=== PATIENT | female | born 1985 | race Caucasian/White ===

== ENCOUNTER 2017-04-21 18:51 | Inpatient (IN) | payer MEDICAID ==
[~2017-04-21] VITALS: Ht 157.5 cm; Wt 57.5 kg
[~2017-04-21 18:51] MED LIST: ALPR0.254 PO; AMOX-367 PO; CHLO473M MM; GABA-826 PO; HYDR-3240 PO; MAGN400T26 PO; ONDA4TAB10 PO; OXYC10TA32 PO; PROC10TA78 PO; PROC25SU25 PR; SERT50TA5 PO
[2017-04-21] MEDS ORDERED: ONDANSETRON 2MG/ML, 2ML IVPush ONE (19:30)
[2017-04-21] MEDS ORDERED: SODIUM CHLORIDE 0.9% 1,000ML IVBOLUS ONE ×2 (19:30→20:00)
[2017-04-21 19:36] LABS: BLOOD UREA NITROGEN 7 mg/dL (7-18)
[2017-04-21 19:40] LABS: ASPARTATE AMINO TRANSFERASE 35 U/L (15-37)
[2017-04-21] MEDS ORDERED: ONDANSETRON 2MG/ML, 2ML ONE (19:46)
[2017-04-21] MEDS ORDERED: HYDROmorphone 1 MG/ML, 1ML ONE ×2 (19:46→21:11)
[2017-04-21] MEDS: HYDROmorphone 2 MG/ML, 1ML IVPush PRN ×2 (19:51→21:14)
[2017-04-21] MEDS ORDERED: PROMETHAZINE 25 MG/ML, 1ML IM ONE (20:00)
[2017-04-21 20:27] LABS: DIFF TOTAL CELLS COUNTED 100 CELL DIFF
[2017-04-21] MEDS ORDERED: PROMETHAZINE 25 MG/ML, 1ML ONE (20:55)
[2017-04-21 20:58] LABS: ANISOCYTOSIS 1+; POIKILOCYTOSIS 1+
[2017-04-21 21:00] LABS: VERIFY COUNTS? YES
[2017-04-21] MEDS ORDERED: CEFTRIAXONE PMX 1GM/50ML 50 ML IV ONE (21:00)
[2017-04-21] MEDS ORDERED: CEFTRIAXONE PMX 1GM/50ML 50 ML ONE (21:03)
[2017-04-21] MEDS ORDERED: LORazepam 2 MG/ML, 1ML ONE (21:12)
[2017-04-21] MEDS ORDERED: PIPERACILLIN/TAZO 3.375 GM in SODIUM CHLORIDE 0.9% 50 ML IV ONE (21:30)
[2017-04-21] MEDS ORDERED: LABETALOL 5MG/ML, 20ML IVPush PRN (22:00)
[2017-04-21] MEDS ORDERED: DOCUSATE 100 MG CAPSULE PO PRN (22:00)
[2017-04-21] MEDS ORDERED: PIPERACILLIN/TAZO 3.375 GM in SODIUM CHLORIDE 0.9% 50 ML IV SCH (22:00)
[2017-04-21] MEDS ORDERED: POLYETHYLENE GLYCOL 17 GM PACKET PO PRN (22:00)
[2017-04-21] MEDS ORDERED: VANCOMYCIN PMX 1GM/200ML 200 ML IV ONE (22:00)
[2017-04-21] MEDS ORDERED: BISACODYL 10 MG SUPP PR PRN (22:00)
[2017-04-21] MEDS ORDERED: LORazepam 2 MG/ML, 1ML IVPush ONE (22:00)
[2017-04-21] MEDS: SODIUM CHLORIDE 0.9% 1,000 ML IV SCH (22:40)
[2017-04-21 22:45] VITALS: BP_SYST 111; BP_SYST 114; BP_DIAS 65; BP_DIAS 70
[2017-04-21] MEDS: PIPERACILLIN/TAZO/PMX 3.375GM 50 ML IV SCH (22:57)
[2017-04-21] MEDS: ALLOPURINOL 100 MG TABLET PO SCH (22:58)
[2017-04-21] MEDS: TRAZODONE 50MG TABLET PO PRN (22:58)
[2017-04-21 22:59] VITALS: BP 116/65
[2017-04-21 23:05] VITALS: BP 125/68
[2017-04-21 23:19] VITALS: BP 114/71
[2017-04-21 23:30] VITALS: BP 107/68
[2017-04-21 23:36] VITALS: BP 107/68
[2017-04-22 00:12] LABS: BLOOD UREA NITROGEN 5 mg/dL (7-18)
[2017-04-22] MEDS: SODIUM CHLORIDE 0.9% 1,000 ML IV SCH ×4 (01:34→23:12)
[2017-04-22 04:00] VITALS: BP 110/70
[2017-04-22] MEDS: PIPERACILLIN/TAZO/PMX 3.375GM 50 ML IV SCH ×4 (04:58→23:12)
[2017-04-22 05:28] LABS: ASPARTATE AMINO TRANSFERASE 39 U/L (15-37); BLOOD UREA NITROGEN 5 mg/dL (7-18)
[2017-04-22 06:21] LABS: DIFF TOTAL CELLS COUNTED 100 CELL DIFF
[2017-04-22] MEDS ORDERED: POTASSIUM CHLORIDE 20 MEQ TAB.ER.PRT PO ONE ×2 (06:30→17:00)
[2017-04-22 07:28] LABS: VERIFY COUNTS? YES
[2017-04-22] MEDS: HYDROmorphone 2 MG/ML, 1ML IVPush PRN ×4 (08:47→22:17)
[2017-04-22] MEDS: ALLOPURINOL 100 MG TABLET PO SCH (08:57)
[2017-04-22] MEDS ORDERED: ALLOPURINOL 100 MG TABLET PO ONE (11:30)
[2017-04-22 11:55] LABS: HEP B SURF. AB 30.5 mIU/mL (0.0-10.0)
[2017-04-22 12:40] VITALS: BP 123/75
[2017-04-22 12:58] LABS: BLOOD UREA NITROGEN 5 mg/dL (7-18)
[2017-04-22 13:30] VITALS: BP 116/69
[2017-04-22 13:50] VITALS: BP 117/65
[2017-04-22] MEDS ORDERED: LIDOCAINE 1%, 20ML ONE (13:56)
[2017-04-22] MEDS ORDERED: MIDAZOLAM 1 MG/ML, 5ML ONE (14:03)
[2017-04-22] MEDS ORDERED: FENTANYL PF 100 MCG/2ML ONE ×2 (14:03→14:05)
[2017-04-22 14:05] VITALS: BP 117/65
[2017-04-22] MEDS ORDERED: NALOXONE 1 MG/ML, 2ML ONE (14:05)
[2017-04-22] MEDS ORDERED: FLUMAZENIL 0.1 MG/1 ML, 5ML ONE (14:05)
[2017-04-22 14:17] VITALS: BP 116/66
[2017-04-22] MEDS ORDERED: OMNIPAQUE 350 MG/ML, 100ML BOTTLE ONE (14:52)
[2017-04-22] MEDS ORDERED: DEXAMETHASONE 10 MG in SODIUM CHLORIDE 0.9% 50 ML IV ONE (16:00)
[2017-04-22 17:38] LABS: ASPARTATE AMINO TRANSFERASE 79 U/L (15-37); BLOOD UREA NITROGEN 4 mg/dL (7-18)
[2017-04-22 17:42] LABS: DIFF TOTAL CELLS COUNTED 100 CELL DIFF
[2017-04-22 17:48] LABS: VERIFY COUNTS? YES
[2017-04-22] MEDS: MICAFUNGIN 100 MG in SODIUM CHLORIDE 0.9% 100 ML IV SCH (19:43)
[2017-04-22] MEDS: TRAZODONE 50MG TABLET PO PRN (23:12)
[2017-04-23] MEDS: HYDROmorphone 2 MG/ML, 1ML IVPush PRN ×3 (03:51→20:41)
[2017-04-23 03:53] VITALS: BP 94/56
[2017-04-23] MEDS: PIPERACILLIN/TAZO/PMX 3.375GM 50 ML IV SCH ×4 (05:22→23:41)
[2017-04-23] MEDS: SODIUM CHLORIDE 0.9% 1,000 ML IV SCH ×3 (05:23→16:59)
[2017-04-23 05:33] LABS: BLOOD UREA NITROGEN 9 mg/dL (7-18)
[2017-04-23 05:54] LABS: ASPARTATE AMINO TRANSFERASE 44 U/L (15-37)
[2017-04-23 06:41] LABS: DIFF TOTAL CELLS COUNTED 100 CELL DIFF
[2017-04-23 06:43] LABS: VERIFY COUNTS? YES
[2017-04-23] MEDS ORDERED: DEXAMETHASONE 10 MG in SODIUM CHLORIDE 0.9% 50 ML IV ONE (08:00)
[2017-04-23] MEDS: DEXAMETHASONE 10 MG in SODIUM CHLORIDE 0.9% 50 ML IV SCH ×3 (08:03→20:41)
[2017-04-23] MEDS ORDERED: FLUMAZENIL 0.1 MG/1 ML, 5ML ONE (08:58)
[2017-04-23] MEDS ORDERED: NALOXONE 1 MG/ML, 2ML ONE (08:58)
[2017-04-23] MEDS ORDERED: MIDAZOLAM 1 MG/ML, 5ML ONE (08:58)
[2017-04-23] MEDS ORDERED: FENTANYL PF 100 MCG/2ML ONE (08:58)
[2017-04-23] MEDS ORDERED: LIDOCAINE 1%, 20ML ONE (10:19)
[2017-04-23] MEDS: ALLOPURINOL 300 MG TABLET PO SCH (12:08)
[2017-04-23] MEDS ORDERED: OXYcodone 5 MG/5 ML ORAL.SOL UDC PO PRN (16:30)
[2017-04-23] MEDS: OXYcodone IR 5MG TABLET PO PRN ×2 (16:55→18:06)
[2017-04-23] MEDS: MICAFUNGIN 100 MG in SODIUM CHLORIDE 0.9% 100 ML IV SCH (18:01)
[2017-04-23] MEDS: TRAZODONE 50MG TABLET PO PRN (21:48)
[2017-04-24] MEDS: DEXAMETHASONE 10 MG in SODIUM CHLORIDE 0.9% 50 ML IV SCH ×2 (02:20→08:47)
[2017-04-24] MEDS: SODIUM CHLORIDE 0.9% 1,000 ML IV SCH ×4 (02:20→21:19)
[2017-04-24] MEDS: PIPERACILLIN/TAZO/PMX 3.375GM 50 ML IV SCH ×4 (04:46→23:15)
[2017-04-24 05:40] VITALS: BP 112/71
[2017-04-24 05:45] LABS: DIFF TOTAL CELLS COUNTED 100 CELL DIFF
[2017-04-24 06:03] LABS: ASPARTATE AMINO TRANSFERASE 24 U/L (15-37); BLOOD UREA NITROGEN 14 mg/dL (7-18)
[2017-04-24 06:11] LABS: VERIFY COUNTS? YES
[2017-04-24 06:28] LABS: ANISOCYTOSIS 1+; SPHEROCYTES 1+
[2017-04-24] MEDS: ALLOPURINOL 300 MG TABLET PO SCH (08:50)
[2017-04-24] MEDS: OXYcodone IR 5MG TABLET PO PRN ×3 (09:09→18:04)
[2017-04-24] MEDS ORDERED: ONDANSETRON 16 MG in SODIUM CHLORIDE 0.9% 50 ML IVPB ONE (09:30)
[2017-04-24 09:51] VITALS: BP 104/73
[2017-04-24 10:05] VITALS: BP 143/74
[2017-04-24] MEDS: SODIUM CHLORIDE 0.9% IV SCH ×2 (10:51→14:30)
[2017-04-24] MEDS: [UNRECOGNIZED DRUG - OTHER] IV SCH (10:51)
[2017-04-24 10:58] VITALS: BP 115/74
[2017-04-24 13:41] LABS: OCCBLD OBC PASS
[2017-04-24] MEDS: CYTARABINE IV SCH (14:30)
[2017-04-24] MEDS: IDARUBICIN IV SCH (17:50)
[2017-04-24] MEDS: MICAFUNGIN 100 MG in SODIUM CHLORIDE 0.9% 100 ML IV SCH (18:06)
[2017-04-24] MEDS: HYDROmorphone 2 MG/ML, 1ML IVPush PRN (21:18)
[2017-04-24] MEDS: TBO-FILGRASTIM 300 MCG/0.5 ML SQ SCH (21:30)
[2017-04-24] MEDS: TRAZODONE 50MG TABLET PO PRN (23:14)
[2017-04-25] VITALS (9 sets, daily range): BP systolic 109–132; BP diastolic 67–96
[2017-04-25] MEDS: OXYcodone IR 5MG TABLET PO PRN (00:22)
[2017-04-25] MEDS: HYDROmorphone 2 MG/ML, 1ML IVPush PRN ×4 (01:33→16:49)
[2017-04-25] MEDS: SODIUM CHLORIDE 0.9% 1,000 ML IV SCH ×4 (04:21→22:43)
[2017-04-25] MEDS: PIPERACILLIN/TAZO/PMX 3.375GM 50 ML IV SCH ×4 (05:20→22:43)
[2017-04-25 05:58] LABS: ASPARTATE AMINO TRANSFERASE 13 U/L (15-37); BLOOD UREA NITROGEN 10 mg/dL (7-18)
[2017-04-25 06:28] LABS: DIFF TOTAL CELLS COUNTED 100 CELL DIFF
[2017-04-25 06:32] LABS: VERIFY COUNTS? YES
[2017-04-25 06:34] LABS: ANISOCYTOSIS 1+; POIKILOCYTOSIS 1+
[2017-04-25] MEDS ORDERED: DIPHENHYDRAMINE 25 MG CAPSULE PO ONE (07:30)
[2017-04-25] MEDS ORDERED: ACETAMINOPHEN 325 MG TABLET PO ONE (07:30)
[2017-04-25] MEDS: CALCIUM CARBONATE 500 MG TAB.CHEW PO SCH ×4 (08:37→20:51)
[2017-04-25] MEDS: ALLOPURINOL 300 MG TABLET PO SCH (09:25)
[2017-04-25] MEDS: ONDANSETRON IVPB SCH (11:12)
[2017-04-25] MEDS: SODIUM CHLORIDE 0.9% IVPB SCH (11:12)
[2017-04-25] MEDS: DEXAMETHASONE IVPB SCH (11:12)
[2017-04-25] MEDS: SODIUM CHLORIDE 0.9% IV SCH ×2 (11:49→16:38)
[2017-04-25] MEDS: [UNRECOGNIZED DRUG - OTHER] IV SCH (11:49)
[2017-04-25] MEDS: CYTARABINE IV SCH (16:38)
[2017-04-25 19:08] LABS: BLOOD UREA NITROGEN 13 mg/dL (7-18)
[2017-04-25] MEDS: MICAFUNGIN 100 MG in SODIUM CHLORIDE 0.9% 100 ML IV SCH (19:51)
[2017-04-25] MEDS: TBO-FILGRASTIM 300 MCG/0.5 ML SQ SCH (20:48)
[2017-04-25] MEDS: IDARUBICIN IV SCH (20:48)
[2017-04-26 03:51] VITALS: BP 115/81
[2017-04-26] MEDS: PIPERACILLIN/TAZO/PMX 3.375GM 50 ML IV SCH ×2 (04:53→10:29)
[2017-04-26] MEDS: SODIUM CHLORIDE 0.9% 1,000 ML IV SCH ×3 (04:54→22:07)
[2017-04-26 05:25] LABS: ASPARTATE AMINO TRANSFERASE 20 U/L (15-37); BLOOD UREA NITROGEN 14 mg/dL (7-18)
[2017-04-26 06:00] LABS: DIFF TOTAL CELLS COUNTED 100 CELL DIFF
[2017-04-26 06:03] LABS: ANISOCYTOSIS 1+; VERIFY COUNTS? YES
[2017-04-26 07:27] VITALS: BP 108/73
[2017-04-26] MEDS: ONDANSETRON 2MG/ML, 2ML IVPush PRN (08:06)
[2017-04-26] MEDS: CALCIUM CARBONATE 500 MG TAB.CHEW PO SCH ×3 (08:06→22:07)
[2017-04-26] MEDS: ALLOPURINOL 300 MG TABLET PO SCH (08:06)
[2017-04-26] MEDS: ONDANSETRON IVPB SCH (09:55)
[2017-04-26] MEDS: SODIUM CHLORIDE 0.9% IVPB SCH (09:55)
[2017-04-26] MEDS: DEXAMETHASONE IVPB SCH (09:55)
[2017-04-26] MEDS: HYDROmorphone 2 MG/ML, 1ML IVPush PRN ×3 (10:30→20:25)
[2017-04-26] MEDS: SODIUM CHLORIDE 0.9% IV SCH ×2 (11:37→16:39)
[2017-04-26] MEDS: [UNRECOGNIZED DRUG - OTHER] IV SCH (11:37)
[2017-04-26] MEDS: CEFTRIAXONE PMX 2GM/50ML 50 ML IV SCH (15:17)
[2017-04-26] MEDS: CYTARABINE IV SCH (16:39)
[2017-04-26 19:53] VITALS: BP 111/73
[2017-04-26] MEDS: TBO-FILGRASTIM 300 MCG/0.5 ML SQ SCH (21:12)
[2017-04-26] MEDS: IDARUBICIN IV SCH (22:08)
[2017-04-26 23:06] LABS: HSV 2 IGG TYPE SPECIFIC <0.91 index (0.00-0.90); HSV I/II IGM COMBO <0.91 Ratio (0.00-0.90)
[2017-04-27] MEDS: SODIUM CHLORIDE 0.9% 1,000 ML IV SCH ×5 (04:14→22:40)
[2017-04-27 05:31] LABS: ASPARTATE AMINO TRANSFERASE 22 U/L (15-37); BLOOD UREA NITROGEN 16 mg/dL (7-18)
[2017-04-27 06:29] LABS: DIFF TOTAL CELLS COUNTED 25 CELL DIFFERENTIAL
[2017-04-27 06:30] LABS: ANISOCYTOSIS 1+
[2017-04-27 06:32] LABS: VERIFY COUNTS? YES
[2017-04-27] MEDS: HYDROmorphone 2 MG/ML, 1ML IVPush PRN ×2 (07:56→15:51)
[2017-04-27] MEDS: ONDANSETRON 2MG/ML, 2ML IVPush PRN ×2 (08:02→23:55)
[2017-04-27 08:44] VITALS: BP 107/65
[2017-04-27] MEDS: CALCIUM CARBONATE 500 MG TAB.CHEW PO SCH ×3 (10:37→20:22)
[2017-04-27] MEDS: ALLOPURINOL 300 MG TABLET PO SCH (10:37)
[2017-04-27] MEDS: SODIUM CHLORIDE 0.9% IVPB SCH (10:52)
[2017-04-27] MEDS: DEXAMETHASONE IVPB SCH (10:52)
[2017-04-27] MEDS: ONDANSETRON IVPB SCH (10:52)
[2017-04-27] MEDS: SODIUM CHLORIDE 0.9% IV SCH ×2 (11:50→17:01)
[2017-04-27] MEDS: [UNRECOGNIZED DRUG - OTHER] IV SCH (11:50)
[2017-04-27 14:57] VITALS: BP 101/60
[2017-04-27] MEDS: CEFTRIAXONE PMX 2GM/50ML 50 ML IV SCH ×2 (15:40→15:44)
[2017-04-27] MEDS: CYTARABINE IV SCH (17:01)
[2017-04-27 20:00] VITALS: BP 92/60
[2017-04-27] MEDS: TBO-FILGRASTIM 300 MCG/0.5 ML SQ SCH (20:22)
[2017-04-28] VITALS (7 sets, daily range): BP systolic 93–105; BP diastolic 55–64
[2017-04-28] MEDS: SODIUM CHLORIDE 0.9% 1,000 ML IV SCH ×4 (04:25→23:43)
[2017-04-28] MEDS: CALCIUM CARBONATE 500 MG TAB.CHEW PO SCH ×3 (07:59→20:01)
[2017-04-28] MEDS: ALLOPURINOL 300 MG TABLET PO SCH (08:01)
[2017-04-28] MEDS: OXYcodone IR 5MG TABLET PO PRN ×2 (08:01→17:19)
[2017-04-28 08:33] LABS: BLOOD UREA NITROGEN 13 mg/dL (7-18)
[2017-04-28 08:37] LABS: ASPARTATE AMINO TRANSFERASE 16 U/L (15-37)
[2017-04-28 09:02] LABS: DIFF TOTAL CELLS COUNTED 100 CELL DIFF
[2017-04-28 09:10] LABS: ANISOCYTOSIS 1+; VERIFY COUNTS? YES
[2017-04-28] MEDS ORDERED: ONDANSETRON 16 MG, DEXAMETHASONE 10 MG in SODIUM CHLORIDE 0.9% 50 ML IVPB ONE (10:00)
[2017-04-28] MEDS ORDERED: SODIUM CHLORIDE 0.9% IV ONE ×2 (12:00→16:00)
[2017-04-28] MEDS ORDERED: [UNRECOGNIZED DRUG - OTHER] IV ONE (12:00)
[2017-04-28] MEDS: HYDROCORTISONE 100 MG INJ. IVPush PRN (13:34)
[2017-04-28] MEDS ORDERED: CYTARABINE IV ONE (16:00)
[2017-04-28] MEDS: TBO-FILGRASTIM 300 MCG/0.5 ML SQ SCH (20:00)
[2017-04-28] MEDS: DEXAMETHASONE OPHTH 0.1%, 5ML EACHEYE SCH (21:00)
[2017-04-28] MEDS: ONDANSETRON 2MG/ML, 2ML IVPush PRN (21:59)
[2017-04-28] MEDS: HYDROmorphone 2 MG/ML, 1ML IVPush PRN (23:47)
[2017-04-29 03:21] VITALS: BP 107/60
[2017-04-29] MEDS: DEXAMETHASONE OPHTH 0.1%, 5ML EACHEYE SCH ×4 (04:57→21:00)
[2017-04-29 06:33] LABS: ASPARTATE AMINO TRANSFERASE 14 U/L (15-37); BLOOD UREA NITROGEN 14 mg/dL (7-18)
[2017-04-29] MEDS: SODIUM CHLORIDE 0.9% 1,000 ML IV SCH ×3 (06:33→21:20)
[2017-04-29 07:33] LABS: DIFF TOTAL CELLS COUNTED 25 CELL DIFFERENTIAL
[2017-04-29 07:35] LABS: VERIFY COUNTS? YES
[2017-04-29 08:21] VITALS: BP 105/65
[2017-04-29] MEDS: ALLOPURINOL 300 MG TABLET PO SCH (08:24)
[2017-04-29] MEDS: ONDANSETRON 2MG/ML, 2ML IVPush PRN ×2 (08:24→19:43)
[2017-04-29] MEDS: HYDROmorphone 2 MG/ML, 1ML IVPush PRN ×3 (08:24→19:43)
[2017-04-29] MEDS: CALCIUM CARBONATE 500 MG TAB.CHEW PO SCH ×3 (08:24→21:00)
[2017-04-29 13:06] VITALS: BP 99/60
[2017-04-29] MEDS: CEFTRIAXONE PMX 2GM/50ML 50 ML IV SCH (13:33)
[2017-04-29 19:18] VITALS: BP 107/63
[2017-04-29] MEDS: OXYcodone IR 5MG TABLET PO PRN (21:35)
[2017-04-30] MEDS: ONDANSETRON 2MG/ML, 2ML IVPush PRN ×3 (00:16→15:56)
[2017-04-30 03:04] VITALS: BP 93/53
[2017-04-30] MEDS: SODIUM CHLORIDE 0.9% 1,000 ML IV SCH ×4 (03:35→20:09)
[2017-04-30 03:59] LABS: ASPARTATE AMINO TRANSFERASE 24 U/L (15-37); BLOOD UREA NITROGEN 10 mg/dL (7-18)
[2017-04-30 04:36] LABS: DIFF TOTAL CELLS COUNTED 100 CELL DIFF
[2017-04-30 04:48] LABS: VERIFY COUNTS? YES
[2017-04-30 04:49] LABS: ANISOCYTOSIS 1+; OVALOCYTES 1+
[2017-04-30] MEDS: HYDROmorphone 2 MG/ML, 1ML IVPush PRN ×4 (05:59→20:09)
[2017-04-30] MEDS: DEXAMETHASONE OPHTH 0.1%, 5ML EACHEYE SCH ×4 (06:00→20:09)
[2017-04-30] MEDS: ALLOPURINOL 300 MG TABLET PO SCH (08:38)
[2017-04-30] MEDS: CALCIUM CARBONATE 500 MG TAB.CHEW PO SCH ×3 (08:38→20:09)
[2017-04-30 08:57] VITALS: BP 98/58
[2017-04-30] MEDS: CEFTRIAXONE PMX 2GM/50ML 50 ML IV SCH (14:27)
[2017-04-30 16:07] VITALS: BP 102/62
[2017-04-30 21:57] VITALS: BP 98/61
[2017-05-01] VITALS (9 sets, daily range): BP systolic 99–113; BP diastolic 50–75
[2017-05-01] MEDS: HYDROmorphone 2 MG/ML, 1ML IVPush PRN ×5 (00:42→19:51)
[2017-05-01] MEDS: ONDANSETRON 2MG/ML, 2ML IVPush PRN (00:46)
[2017-05-01] MEDS: SODIUM CHLORIDE 0.9% 1,000 ML IV SCH ×4 (02:21→22:35)
[2017-05-01] MEDS: DEXAMETHASONE OPHTH 0.1%, 5ML EACHEYE SCH ×4 (06:10→19:51)
[2017-05-01 06:51] LABS: ASPARTATE AMINO TRANSFERASE 14 U/L (15-37); BLOOD UREA NITROGEN 8 mg/dL (7-18)
[2017-05-01 08:10] LABS: DIFF TOTAL CELLS COUNTED 100 CELL DIFF
[2017-05-01 08:11] LABS: VERIFY COUNTS? YES
[2017-05-01 08:25] LABS: ANISOCYTOSIS 1+; OVALOCYTES 1+
[2017-05-01] MEDS: CALCIUM CARBONATE 500 MG TAB.CHEW PO SCH ×4 (10:38→19:51)
[2017-05-01] MEDS: ALLOPURINOL 300 MG TABLET PO SCH (10:38)
[2017-05-01] MEDS: VANCOMYCIN 50 MG/ML ORAL SUSP PO SCH ×3 (10:41→22:34)
[2017-05-01] MEDS: CEFTRIAXONE PMX 2GM/50ML 50 ML IV SCH (16:06)
[2017-05-02] VITALS (7 sets, daily range): BP systolic 99–126; BP diastolic 64–87
[2017-05-02] MEDS: HYDROmorphone 2 MG/ML, 1ML IVPush PRN ×7 (00:43→21:25)
[2017-05-02] MEDS: DEXAMETHASONE OPHTH 0.1%, 5ML EACHEYE SCH ×4 (05:08→21:00)
[2017-05-02] MEDS: SODIUM CHLORIDE 0.9% 1,000 ML IV SCH ×3 (05:08→20:17)
[2017-05-02] MEDS: VANCOMYCIN 50 MG/ML ORAL SUSP PO SCH ×4 (05:08→23:13)
[2017-05-02 05:48] LABS: ASPARTATE AMINO TRANSFERASE 12 U/L (15-37); BLOOD UREA NITROGEN 8 mg/dL (7-18)
[2017-05-02 07:32] LABS: ANISOCYTOSIS 1+; DIFF TOTAL CELLS COUNTED BUFFY COAT DI; VERIFY COUNTS? YES
[2017-05-02] MEDS: CALCIUM CARBONATE 500 MG TAB.CHEW PO SCH ×3 (09:00→20:20)
[2017-05-02] MEDS: ALLOPURINOL 300 MG TABLET PO SCH (09:37)
[2017-05-02] MEDS: HYDROCORTISONE 100 MG INJ. IVPush PRN (09:38)
[2017-05-02] MEDS: ONDANSETRON 2MG/ML, 2ML IVPush PRN ×2 (12:34→17:27)
[2017-05-02] MEDS: CEFTRIAXONE PMX 2GM/50ML 50 ML IV SCH (15:05)
[2017-05-02] MEDS: OXYcodone IR 5MG TABLET PO PRN (19:39)
[2017-05-03] VITALS (7 sets, daily range): BP systolic 99–118; BP diastolic 60–77
[2017-05-03] MEDS: ONDANSETRON 2MG/ML, 2ML IVPush PRN ×3 (01:49→17:49)
[2017-05-03] MEDS: HYDROmorphone 2 MG/ML, 1ML IVPush PRN ×6 (01:49→22:55)
[2017-05-03] MEDS: SODIUM CHLORIDE 0.9% 1,000 ML IV SCH ×4 (03:17→23:51)
[2017-05-03] MEDS: VANCOMYCIN 50 MG/ML ORAL SUSP PO SCH ×3 (05:47→20:05)
[2017-05-03] MEDS: DEXAMETHASONE OPHTH 0.1%, 5ML EACHEYE SCH ×4 (05:48→21:00)
[2017-05-03 06:24] LABS: ASPARTATE AMINO TRANSFERASE 12 U/L (15-37); BLOOD UREA NITROGEN 10 mg/dL (7-18)
[2017-05-03 07:28] LABS: DIFF TOTAL CELLS COUNTED 10 CELL DIFF
[2017-05-03 07:38] LABS: ANISOCYTOSIS 1+; VERIFY COUNTS? YES
[2017-05-03] MEDS: HYDROCORTISONE 100 MG INJ. IVPush PRN (08:37)
[2017-05-03] MEDS: ALLOPURINOL 300 MG TABLET PO SCH (08:37)
[2017-05-03] MEDS: CALCIUM CARBONATE 500 MG TAB.CHEW PO SCH ×3 (08:38→21:00)
[2017-05-03] MEDS: CEFTRIAXONE PMX 2GM/50ML 50 ML IV SCH (16:37)
[2017-05-03] MEDS ORDERED: TBO-FILGRASTIM 300 MCG/0.5 ML SQ ONE (19:01)
[2017-05-03] MEDS: OXYcodone IR 5MG TABLET PO PRN (20:05)
[2017-05-04] VITALS (7 sets, daily range): BP systolic 103–115; BP diastolic 62–75
[2017-05-04] MEDS: HYDROmorphone 2 MG/ML, 1ML IVPush PRN ×6 (01:45→19:23)
[2017-05-04] MEDS: VANCOMYCIN 50 MG/ML ORAL SUSP PO SCH ×4 (01:45→20:39)
[2017-05-04] MEDS: DEXAMETHASONE OPHTH 0.1%, 5ML EACHEYE SCH ×2 (05:59→11:00)
[2017-05-04] MEDS: SODIUM CHLORIDE 0.9% 1,000 ML IV SCH ×3 (05:59→21:59)
[2017-05-04 06:32] LABS: ASPARTATE AMINO TRANSFERASE 6 U/L (15-37); BLOOD UREA NITROGEN 9 mg/dL (7-18)
[2017-05-04 07:49] LABS: DIFF TOTAL CELLS COUNTED 10 CELLS DIFF
[2017-05-04 07:50] LABS: ANISOCYTOSIS 1+; VERIFY COUNTS? YES
[2017-05-04] MEDS: CALCIUM CARBONATE 500 MG TAB.CHEW PO SCH ×3 (09:00→20:36)
[2017-05-04] MEDS ORDERED: TBO-FILGRASTIM 300 MCG/0.5 ML SQ SCH ×2 (09:00)
[2017-05-04] MEDS ORDERED: POTASSIUM CHLORIDE 20 MEQ TAB.ER.PRT PO ONE (11:30)
[2017-05-04] MEDS ORDERED: MAGNESIUM SULFATE PMX 2GM/50ML 50 ML IV ONE (11:30)
[2017-05-04] MEDS: CEFTRIAXONE PMX 2GM/50ML 50 ML IV SCH (14:45)
[2017-05-05] VITALS (9 sets, daily range): BP systolic 91–126; BP diastolic 57–78
[2017-05-05] MEDS: HYDROmorphone 2 MG/ML, 1ML IVPush PRN ×6 (00:50→18:01)
[2017-05-05] MEDS: VANCOMYCIN 50 MG/ML ORAL SUSP PO SCH ×4 (02:29→20:57)
[2017-05-05] MEDS: SODIUM CHLORIDE 0.9% 1,000 ML IV SCH ×3 (04:08→18:01)
[2017-05-05 04:49] LABS: ASPARTATE AMINO TRANSFERASE 6 U/L (15-37); BLOOD UREA NITROGEN 6 mg/dL (7-18)
[2017-05-05 05:05] LABS: DIFF TOTAL CELLS COUNTED 100 CELL DIFF
[2017-05-05 05:12] LABS: ANISOCYTOSIS 1+; VERIFY COUNTS? YES
[2017-05-05] MEDS: ACETAMINOPHEN 325 MG TABLET PO PRN (08:28)
[2017-05-05] MEDS ORDERED: DIPHENHYDRAMINE 25 MG CAPSULE PO ONE (08:30)
[2017-05-05] MEDS: ONDANSETRON 2MG/ML, 2ML IVPush PRN ×3 (08:30→20:57)
[2017-05-05] MEDS: CALCIUM CARBONATE 500 MG TAB.CHEW PO SCH ×3 (09:00→21:00)
[2017-05-05] MEDS ORDERED: TBO-FILGRASTIM 300 MCG/0.5 ML SQ SCH (09:00)
[2017-05-05] MEDS: CEFTRIAXONE PMX 2GM/50ML 50 ML IV SCH (14:27)
[2017-05-06] MEDS: SODIUM CHLORIDE 0.9% 1,000 ML IV SCH ×4 (00:09→23:55)
[2017-05-06] MEDS: HYDROmorphone 2 MG/ML, 1ML IVPush PRN ×7 (00:09→23:59)
[2017-05-06] MEDS: ONDANSETRON 2MG/ML, 2ML IVPush PRN ×4 (02:47→23:59)
[2017-05-06] MEDS: VANCOMYCIN 50 MG/ML ORAL SUSP PO SCH ×4 (02:48→20:00)
[2017-05-06 02:51] VITALS: BP 105/65
[2017-05-06 03:29] LABS: ASPARTATE AMINO TRANSFERASE 5 U/L (15-37); BLOOD UREA NITROGEN 5 mg/dL (7-18)
[2017-05-06 04:18] LABS: DIFF TOTAL CELLS COUNTED 10 CELLS DIFF
[2017-05-06 04:19] LABS: ANISOCYTOSIS 1+; VERIFY COUNTS? YES
[2017-05-06] MEDS: OXYcodone IR 5MG TABLET PO PRN ×2 (08:11→16:26)
[2017-05-06] MEDS: CALCIUM CARBONATE 500 MG TAB.CHEW PO SCH ×3 (08:14→20:15)
[2017-05-06 08:19] VITALS: BP 108/71
[2017-05-06 12:53] VITALS: BP 106/74
[2017-05-06 14:00] VITALS: BP 107/68
[2017-05-06] MEDS: CEFTRIAXONE PMX 2GM/50ML 50 ML IV SCH (14:23)
[2017-05-06] MEDS ORDERED: MORPHINE SULFATE 4 MG/ML, 1ML IVPush PRN (16:30)
[2017-05-06] MEDS ORDERED: CEFTRIAXONE PMX 2GM/50ML 50 ML IV SCH (17:00)
[2017-05-06] MEDS ORDERED: CEFTAZIDIME PMX 2 GM/50ML 50 ML IV SCH (17:00)
[2017-05-06] MEDS ORDERED: CATHFLO-ALTEPLASE 2 MG/2 ML CATHFLUSH ONE (18:00)
[2017-05-06 20:20] VITALS: BP 112/73
[2017-05-07] VITALS (12 sets, daily range): BP systolic 96–114; BP diastolic 56–75
[2017-05-07] MEDS: VANCOMYCIN 50 MG/ML ORAL SUSP PO SCH ×4 (03:05→23:42)
[2017-05-07] MEDS: HYDROmorphone 2 MG/ML, 1ML IVPush PRN ×7 (03:05→22:47)
[2017-05-07 03:45] LABS: ASPARTATE AMINO TRANSFERASE 4 U/L (15-37); BLOOD UREA NITROGEN 5 mg/dL (7-18)
[2017-05-07] MEDS ORDERED: VANCOMYCIN 1,500 MG in SODIUM CHLORIDE 0.9% 250 ML IV SCH ×2 (04:00→16:00)
[2017-05-07] MEDS: ACETAMINOPHEN 325 MG TABLET PO PRN ×2 (04:10→09:43)
[2017-05-07 04:19] LABS: DIFF TOTAL CELLS COUNTED 100 CELL DIFF
[2017-05-07 04:33] LABS: ANISOCYTOSIS 1+
[2017-05-07 04:34] LABS: VERIFY COUNTS? YES
[2017-05-07] MEDS: FLUCONAZOLE 200 MG TABLET PO SCH ×2 (04:50→09:43)
[2017-05-07] MEDS ORDERED: DIPHENHYDRAMINE 25 MG CAPSULE PO ONE (05:00)
[2017-05-07] MEDS: ONDANSETRON 2MG/ML, 2ML IVPush PRN ×3 (06:22→19:29)
[2017-05-07] MEDS ORDERED: LIDOCAINE 1%, 20ML ONE (07:25)
[2017-05-07] MEDS ORDERED: MIDAZOLAM 1 MG/ML, 5ML ONE (07:45)
[2017-05-07] MEDS ORDERED: FLUMAZENIL 0.1 MG/1 ML, 5ML ONE (07:46)
[2017-05-07] MEDS ORDERED: NALOXONE 1 MG/ML, 2ML ONE (07:46)
[2017-05-07] MEDS ORDERED: FENTANYL PF 100 MCG/2ML ONE (07:46)
[2017-05-07] MEDS: CALCIUM CARBONATE 500 MG TAB.CHEW PO SCH ×3 (09:00→20:55)
[2017-05-07] MEDS: DIPHENHYDRAMINE 50 MG/ML, 1ML IVPush PRN (09:43)
[2017-05-07] MEDS ORDERED: POTASSIUM PHOSPHATE 44 MEQ in SODIUM CHLORIDE 0.9% 500 ML IV ONE (10:30)
[2017-05-07] MEDS ORDERED: MAGNESIUM SULFATE PMX 2GM/50ML 50 ML IV ONE (10:30)
[2017-05-07] MEDS: SODIUM CHLORIDE 0.9% 1,000 ML IV SCH ×2 (11:48→20:49)
[2017-05-07] MEDS: MEROPENEM 1 GM in SODIUM CHLORIDE 0.9% 100 ML IV SCH ×2 (16:26→23:42)
[2017-05-07] MEDS ORDERED: TBO-FILGRASTIM 300 MCG/0.5 ML SQ ONE (18:00)
[2017-05-07] MEDS: DAPTOMYCIN 240 MG in SODIUM CHLORIDE 0.9% 100 ML IV SCH (18:33)
[2017-05-07] MEDS: MICAFUNGIN 100 MG in SODIUM CHLORIDE 0.9% 100 ML IV SCH (20:49)
[2017-05-08] VITALS (9 sets, daily range): BP systolic 100–116; BP diastolic 65–78
[2017-05-08] MEDS: ONDANSETRON 2MG/ML, 2ML IVPush PRN ×4 (01:57→23:50)
[2017-05-08] MEDS: HYDROmorphone 2 MG/ML, 1ML IVPush PRN ×8 (01:58→23:50)
[2017-05-08 02:23] LABS: ASPARTATE AMINO TRANSFERASE 6 U/L (15-37); BLOOD UREA NITROGEN 6 mg/dL (7-18)
[2017-05-08 02:36] LABS: DIFF TOTAL CELLS COUNTED 10 CELL DIFF; VERIFY COUNTS? YES
[2017-05-08] MEDS: ACETAMINOPHEN 325 MG TABLET PO PRN ×4 (02:36→23:57)
[2017-05-08 02:37] LABS: ANISOCYTOSIS 1+
[2017-05-08] MEDS: SODIUM CHLORIDE 0.9% 1,000 ML IV SCH ×4 (04:51→21:09)
[2017-05-08] MEDS: VANCOMYCIN 50 MG/ML ORAL SUSP PO SCH ×4 (06:10→23:50)
[2017-05-08] MEDS: DIPHENHYDRAMINE 50 MG/ML, 1ML IVPush PRN (08:17)
[2017-05-08] MEDS: CALCIUM CARBONATE 500 MG TAB.CHEW PO SCH ×3 (08:24→21:01)
[2017-05-08] MEDS: MEROPENEM 1 GM in SODIUM CHLORIDE 0.9% 100 ML IV SCH ×3 (08:24→23:50)
[2017-05-08] MEDS: FLUCONAZOLE 200 MG TABLET PO SCH (08:25)
[2017-05-08] MEDS ORDERED: POTASSIUM PHOSPHATE 44 MEQ in SODIUM CHLORIDE 0.9% 500 ML IV SCH ×2 (15:30→16:54)
[2017-05-08] MEDS ORDERED: MAGNESIUM SULFATE PMX 2GM/50ML 50 ML IV ONE (15:30)
[2017-05-08] MEDS ORDERED: TBO-FILGRASTIM 300 MCG/0.5 ML SQ SCH (18:00)
[2017-05-08] MEDS: DAPTOMYCIN 240 MG in SODIUM CHLORIDE 0.9% 100 ML IV SCH (18:07)
[2017-05-08] MEDS: MICAFUNGIN 100 MG in SODIUM CHLORIDE 0.9% 100 ML IV SCH (21:00)
[2017-05-09] MEDS ORDERED: POTASSIUM PHOSPHATE 44 MEQ in SODIUM CHLORIDE 0.9% 500 ML IV SCH (01:00)
[2017-05-09] MEDS: HYDROmorphone 2 MG/ML, 1ML IVPush PRN ×6 (02:49→21:14)
[2017-05-09] MEDS: VANCOMYCIN 50 MG/ML ORAL SUSP PO SCH ×3 (05:09→18:49)
[2017-05-09] MEDS: SODIUM CHLORIDE 0.9% 1,000 ML IV SCH ×3 (05:50→20:59)
[2017-05-09] MEDS: ONDANSETRON 2MG/ML, 2ML IVPush PRN ×3 (05:50→18:45)
[2017-05-09 06:03] LABS: ASPARTATE AMINO TRANSFERASE 3 U/L (15-37); BLOOD UREA NITROGEN 3 mg/dL (7-18)
[2017-05-09 06:57] LABS: DIFF TOTAL CELLS COUNTED 10 CELL DIFF
[2017-05-09 07:09] LABS: ANISOCYTOSIS 1+; VERIFY COUNTS? YES
[2017-05-09] MEDS: FLUCONAZOLE 200 MG TABLET PO SCH (07:59)
[2017-05-09 09:10] VITALS: BP 114/78
[2017-05-09] MEDS: MEROPENEM 1 GM in SODIUM CHLORIDE 0.9% 100 ML IV SCH ×2 (09:12→15:30)
[2017-05-09] MEDS: CALCIUM CARBONATE 500 MG TAB.CHEW PO SCH ×3 (09:15→21:00)
[2017-05-09 13:32] VITALS: BP 119/77
[2017-05-09] MEDS: ACETAMINOPHEN 325 MG TABLET PO PRN ×2 (14:09→21:14)
[2017-05-09] MEDS: DAPTOMYCIN 240 MG in SODIUM CHLORIDE 0.9% 100 ML IV SCH (17:34)
[2017-05-09] MEDS ORDERED: FILGRASTIM 300 MCG/ML SQ ONE (18:00)
[2017-05-09] MEDS ORDERED: TBO-FILGRASTIM 300 MCG/0.5 ML SQ SCH (18:00)
[2017-05-09] MEDS ORDERED: OMNIPAQUE 350 MG/ML, 100ML BOTTLE ONE (18:19)
[2017-05-09] MEDS: OXYcodone IR 5MG TABLET PO PRN (20:27)
[2017-05-09] MEDS: MICAFUNGIN 100 MG in SODIUM CHLORIDE 0.9% 100 ML IV SCH (20:59)
[2017-05-09 21:14] VITALS: BP 126/83
[2017-05-10] MEDS: ONDANSETRON 2MG/ML, 2ML IVPush PRN ×4 (00:22→21:19)
[2017-05-10] MEDS: HYDROmorphone 2 MG/ML, 1ML IVPush PRN ×10 (00:23→23:04)
[2017-05-10] MEDS: VANCOMYCIN 50 MG/ML ORAL SUSP PO SCH ×5 (00:24→22:23)
[2017-05-10] MEDS: MEROPENEM 1 GM in SODIUM CHLORIDE 0.9% 100 ML IV SCH ×4 (00:24→22:23)
[2017-05-10 02:58] VITALS: BP 109/74
[2017-05-10 03:53] LABS: ASPARTATE AMINO TRANSFERASE 4 U/L (15-37); BLOOD UREA NITROGEN 4 mg/dL (7-18)
[2017-05-10 04:03] LABS: C-REACTIVE PROTEIN, QUANT > 19.00 mg/dL (0.02-0.49)
[2017-05-10 04:21] LABS: ANISOCYTOSIS 1+; DIFF TOTAL CELLS COUNTED 10 CELL DIFF; VERIFY COUNTS? YES
[2017-05-10] MEDS: SODIUM CHLORIDE 0.9% 1,000 ML IV SCH ×3 (06:35→22:23)
[2017-05-10] MEDS: FLUCONAZOLE 200 MG TABLET PO SCH (08:03)
[2017-05-10] MEDS: OXYcodone IR 5MG TABLET PO PRN ×4 (08:14→21:19)
[2017-05-10 08:45] VITALS: BP 115/74
[2017-05-10] MEDS: CALCIUM CARBONATE 500 MG TAB.CHEW PO SCH ×3 (08:57→21:00)
[2017-05-10 16:56] VITALS: BP 106/69
[2017-05-10 19:05] VITALS: BP 116/70
[2017-05-10] MEDS: TBO-FILGRASTIM 300 MCG/0.5 ML SQ SCH (20:00)
[2017-05-10] MEDS: DAPTOMYCIN 240 MG in SODIUM CHLORIDE 0.9% 100 ML IV SCH (20:00)
[2017-05-10] MEDS: MICAFUNGIN 100 MG in SODIUM CHLORIDE 0.9% 100 ML IV SCH (21:19)
[2017-05-11] VITALS (9 sets, daily range): BP systolic 101–123; BP diastolic 62–89
[2017-05-11] MEDS: OXYcodone IR 5MG TABLET PO PRN ×2 (01:17→05:25)
[2017-05-11] MEDS: HYDROmorphone 2 MG/ML, 1ML IVPush PRN ×7 (02:44→22:58)
[2017-05-11 03:09] LABS: ASPARTATE AMINO TRANSFERASE 4 U/L (15-37); BLOOD UREA NITROGEN 4 mg/dL (7-18)
[2017-05-11] MEDS: ONDANSETRON 2MG/ML, 2ML IVPush PRN ×2 (03:40→09:53)
[2017-05-11 03:54] LABS: DIFF TOTAL CELLS COUNTED 100 CELL DIFF
[2017-05-11 03:55] LABS: ANISOCYTOSIS 1+; VERIFY COUNTS? YES
[2017-05-11] MEDS: SODIUM CHLORIDE 0.9% 1,000 ML IV SCH ×4 (05:20→22:58)
[2017-05-11] MEDS: VANCOMYCIN 50 MG/ML ORAL SUSP PO SCH ×4 (06:03→22:57)
[2017-05-11] MEDS: CALCIUM CARBONATE 500 MG TAB.CHEW PO SCH ×3 (09:46→21:20)
[2017-05-11] MEDS: MEROPENEM 1 GM in SODIUM CHLORIDE 0.9% 100 ML IV SCH ×3 (09:46→22:57)
[2017-05-11] MEDS: ACETAMINOPHEN 325 MG TABLET PO PRN (09:51)
[2017-05-11] MEDS: DIPHENHYDRAMINE 50 MG/ML, 1ML IVPush PRN (09:51)
[2017-05-11] MEDS ORDERED: CATHFLO-ALTEPLASE 2 MG/2 ML CATHFLUSH ONE (18:00)
[2017-05-11] MEDS: TBO-FILGRASTIM 300 MCG/0.5 ML SQ SCH (19:16)
[2017-05-11] MEDS: DAPTOMYCIN 240 MG in SODIUM CHLORIDE 0.9% 100 ML IV SCH (20:12)
[2017-05-11] MEDS: MICAFUNGIN 100 MG in SODIUM CHLORIDE 0.9% 100 ML IV SCH (21:20)
[2017-05-12 01:27] VITALS: BP 108/67
[2017-05-12] MEDS: ONDANSETRON 2MG/ML, 2ML IVPush PRN ×4 (01:54→21:14)
[2017-05-12] MEDS: HYDROmorphone 2 MG/ML, 1ML IVPush PRN ×7 (01:54→21:14)
[2017-05-12] MEDS: OXYcodone IR 5MG TABLET PO PRN (02:19)
[2017-05-12] MEDS: VANCOMYCIN 50 MG/ML ORAL SUSP PO SCH ×3 (04:53→21:14)
[2017-05-12] MEDS: SODIUM CHLORIDE 0.9% 1,000 ML IV SCH ×3 (04:54→21:29)
[2017-05-12 05:30] LABS: BLOOD UREA NITROGEN 3 mg/dL (7-18)
[2017-05-12 05:33] LABS: ASPARTATE AMINO TRANSFERASE 5 U/L (15-37)
[2017-05-12 06:12] LABS: DIFF TOTAL CELLS COUNTED 100 CELL DIFF
[2017-05-12 06:36] LABS: ANISOCYTOSIS 1+; VERIFY COUNTS? YES
[2017-05-12 08:00] VITALS: BP 98/61
[2017-05-12] MEDS: MEROPENEM 1 GM in SODIUM CHLORIDE 0.9% 100 ML IV SCH ×2 (10:29→16:04)
[2017-05-12] MEDS: CALCIUM CARBONATE 500 MG TAB.CHEW PO SCH ×3 (10:30→22:33)
[2017-05-12 11:20] VITALS: BP 104/66
[2017-05-12] MEDS ORDERED: OMNIPAQUE 350 MG/ML, 100ML BOTTLE ONE (14:00)
[2017-05-12 14:51] VITALS: BP 104/64
[2017-05-12] MEDS: DIPHENHYDRAMINE 50 MG/ML, 1ML IVPush PRN (15:48)
[2017-05-12] MEDS ORDERED: POTASSIUM CHLORIDE 40 MEQ in SODIUM CHLORIDE 0.9% 500 ML IV ONE ×3 (16:30→23:30)
[2017-05-12] MEDS ORDERED: MAGNESIUM SULFATE PMX 2GM/50ML 50 ML IV ONE (17:30)
[2017-05-12] MEDS ORDERED: POTASSIUM PHOSPHATE 44 MEQ in SODIUM CHLORIDE 0.9% 500 ML IV ONE (19:30)
[2017-05-12 21:06] VITALS: BP 109/66
[2017-05-12] MEDS: DAPTOMYCIN 240 MG in SODIUM CHLORIDE 0.9% 100 ML IV SCH (21:26)
[2017-05-12] MEDS: ACYCLOVIR 600 MG in SODIUM CHLORIDE 0.9% 100 ML IV SCH (22:32)
[2017-05-12] MEDS: OMEPRAZOLE 20 MG CAPSULE.DR PO SCH (22:41)
[2017-05-12] MEDS: TBO-FILGRASTIM 300 MCG/0.5 ML SQ SCH (22:43)
[2017-05-13] MEDS: METRONIDAZOLE PMX 500MG/100ML 100 ML IV SCH ×3 (00:08→16:38)
[2017-05-13] MEDS: MICAFUNGIN 100 MG in SODIUM CHLORIDE 0.9% 100 ML IV SCH ×2 (00:08→23:24)
[2017-05-13] MEDS: HYDROmorphone 2 MG/ML, 1ML IVPush PRN ×8 (00:09→23:24)
[2017-05-13] MEDS: MEROPENEM 1 GM in SODIUM CHLORIDE 0.9% 100 ML IV SCH ×3 (01:26→18:19)
[2017-05-13] MEDS: DIPHENHYDRAMINE 50 MG/ML, 1ML IVPush PRN ×2 (02:30→22:02)
[2017-05-13] MEDS: ONDANSETRON 2MG/ML, 2ML IVPush PRN (03:18)
[2017-05-13] MEDS: SODIUM CHLORIDE 0.9% 1,000 ML IV SCH ×4 (03:18→23:25)
[2017-05-13] MEDS: VANCOMYCIN 50 MG/ML ORAL SUSP PO SCH ×4 (03:18→20:49)
[2017-05-13 03:23] VITALS: BP 95/59
[2017-05-13] MEDS: ACETAMINOPHEN 325 MG TABLET PO PRN (04:51)
[2017-05-13 06:27] LABS: ASPARTATE AMINO TRANSFERASE 8 U/L (15-37); BLOOD UREA NITROGEN 3 mg/dL (7-18)
[2017-05-13] MEDS: ACYCLOVIR 600 MG in SODIUM CHLORIDE 0.9% 100 ML IV SCH ×2 (07:15→15:45)
[2017-05-13 07:19] VITALS: BP 97/55
[2017-05-13 07:21] VITALS: BP 101/64
[2017-05-13] MEDS: OMEPRAZOLE 20 MG CAPSULE.DR PO SCH ×2 (08:00→16:39)
[2017-05-13] MEDS: CALCIUM CARBONATE 500 MG TAB.CHEW PO SCH ×3 (09:00→20:49)
[2017-05-13 14:41] VITALS: BP 101/62
[2017-05-13] MEDS: TBO-FILGRASTIM 300 MCG/0.5 ML SQ SCH (18:18)
[2017-05-13] MEDS ORDERED: POTASSIUM PHOSPHATE 44 MEQ in SODIUM CHLORIDE 0.9% 500 ML IV ONE (19:30)
[2017-05-13 19:40] VITALS: BP 106/69
[2017-05-13] MEDS: DAPTOMYCIN 240 MG in SODIUM CHLORIDE 0.9% 100 ML IV SCH (20:49)
[2017-05-13] MEDS: MIRTAZAPINE 15 MG TAB.RAPDIS PO SCH (23:24)
[2017-05-14] MEDS: ACYCLOVIR 600 MG in SODIUM CHLORIDE 0.9% 100 ML IV SCH ×3 (00:56→17:32)
[2017-05-14] MEDS: METRONIDAZOLE PMX 500MG/100ML 100 ML IV SCH ×3 (01:00→15:55)
[2017-05-14] MEDS: MEROPENEM 1 GM in SODIUM CHLORIDE 0.9% 100 ML IV SCH ×3 (02:30→16:41)
[2017-05-14] MEDS: HYDROmorphone 2 MG/ML, 1ML IVPush PRN ×7 (02:31→21:19)
[2017-05-14] MEDS: VANCOMYCIN 50 MG/ML ORAL SUSP PO SCH ×4 (02:31→21:18)
[2017-05-14 02:53] VITALS: BP 116/73
[2017-05-14 03:18] LABS: ASPARTATE AMINO TRANSFERASE 5 U/L (15-37); BLOOD UREA NITROGEN 4 mg/dL (7-18)
[2017-05-14 04:04] LABS: DIFF TOTAL CELLS COUNTED 100 CELL DIFF; VERIFY COUNTS? YES
[2017-05-14 04:05] LABS: ANISOCYTOSIS 1+
[2017-05-14 08:08] VITALS: BP 102/65
[2017-05-14] MEDS: OMEPRAZOLE 20 MG CAPSULE.DR PO SCH ×2 (08:43→16:41)
[2017-05-14] MEDS: CALCIUM CARBONATE 500 MG TAB.CHEW PO SCH ×3 (08:44→21:00)
[2017-05-14] MEDS: SODIUM CHLORIDE 0.9% 1,000 ML IV SCH ×2 (09:09→15:07)
[2017-05-14 14:30] VITALS: BP 102/69
[2017-05-14] MEDS: TBO-FILGRASTIM 300 MCG/0.5 ML SQ SCH (17:32)
[2017-05-14] MEDS ORDERED: POTASSIUM PHOSPHATE 44 MEQ in SODIUM CHLORIDE 0.9% 500 ML IV ONE (18:30)
[2017-05-14 20:13] VITALS: BP 125/80
[2017-05-14] MEDS: DAPTOMYCIN 240 MG in SODIUM CHLORIDE 0.9% 100 ML IV SCH (21:18)
[2017-05-14] MEDS: MIRTAZAPINE 15 MG TAB.RAPDIS PO SCH (21:18)
[2017-05-14] MEDS: MICAFUNGIN 100 MG in SODIUM CHLORIDE 0.9% 100 ML IV SCH (23:13)
[2017-05-15] MEDS: METRONIDAZOLE PMX 500MG/100ML 100 ML IV SCH ×4 (00:26→22:58)
[2017-05-15] MEDS: MEROPENEM 1 GM in SODIUM CHLORIDE 0.9% 100 ML IV SCH ×3 (00:27→16:02)
[2017-05-15] MEDS: HYDROmorphone 2 MG/ML, 1ML IVPush PRN ×8 (00:27→22:12)
[2017-05-15] MEDS: SODIUM CHLORIDE 0.9% 1,000 ML IV SCH ×4 (00:37→19:48)
[2017-05-15] MEDS: ACYCLOVIR 600 MG in SODIUM CHLORIDE 0.9% 100 ML IV SCH ×4 (00:37→22:55)
[2017-05-15] MEDS: VANCOMYCIN 50 MG/ML ORAL SUSP PO SCH ×4 (03:21→19:48)
[2017-05-15 03:35] VITALS: BP 111/79
[2017-05-15 03:59] LABS: ASPARTATE AMINO TRANSFERASE 7 U/L (15-37); BLOOD UREA NITROGEN 3 mg/dL (7-18)
[2017-05-15 04:24] LABS: ANISOCYTOSIS 1+; DIFF TOTAL CELLS COUNTED 65 CELL DIFF; VERIFY COUNTS? YES
[2017-05-15 05:07] LABS: HEMATOCRIT 20.4 % (34.0-46.6); HEMATOLOGY COMMENTS Note: (.); HEMOGLOBIN 7.1 g/dL (11.1-15.9); MCH 30.2 pg (26.6-33.0); MCHC 34.8 g/dL (31.5-35.7); MCV 87 fL (79-97); PLATELETS 19 x10E3/uL (150-379); RBC 2.35 x10E6/uL (3.77-5.28); RDW 13.6 % (12.3-15.4); WBC 0.1 x10E3/uL (3.4-10.8)
[2017-05-15 08:15] VITALS: BP 99/67
[2017-05-15] MEDS: CALCIUM CARBONATE 500 MG TAB.CHEW PO SCH ×3 (08:26→19:48)
[2017-05-15] MEDS: OMEPRAZOLE 20 MG CAPSULE.DR PO SCH ×2 (08:26→16:02)
[2017-05-15] MEDS: maalox/diphenh/lido/sucralfate 5 ML PO PRN ×2 (12:56→22:54)
[2017-05-15 13:03] VITALS: BP 114/74
[2017-05-15] MEDS: TBO-FILGRASTIM 300 MCG/0.5 ML SQ SCH (18:39)
[2017-05-15] MEDS: MIRTAZAPINE 15 MG TAB.RAPDIS PO SCH (19:47)
[2017-05-15] MEDS: DAPTOMYCIN 240 MG in SODIUM CHLORIDE 0.9% 100 ML IV SCH (19:47)
[2017-05-15 20:45] VITALS: BP 100/64
[2017-05-15] MEDS: MICAFUNGIN 100 MG in SODIUM CHLORIDE 0.9% 100 ML IV SCH (23:01)
[2017-05-16] VITALS (11 sets, daily range): BP systolic 101–115; BP diastolic 67–82
[2017-05-16] MEDS: MEROPENEM 1 GM in SODIUM CHLORIDE 0.9% 100 ML IV SCH ×3 (00:14→17:26)
[2017-05-16] MEDS: HYDROmorphone 2 MG/ML, 1ML IVPush PRN ×8 (01:29→23:59)
[2017-05-16] MEDS: SODIUM CHLORIDE 0.9% 1,000 ML IV SCH ×3 (02:30→20:54)
[2017-05-16] MEDS: VANCOMYCIN 50 MG/ML ORAL SUSP PO SCH ×4 (02:30→20:44)
[2017-05-16] MEDS: DIPHENHYDRAMINE 50 MG/ML, 1ML IVPush PRN (02:30)
[2017-05-16 05:38] LABS: ASPARTATE AMINO TRANSFERASE 9 U/L (15-37); BLOOD UREA NITROGEN 3 mg/dL (7-18)
[2017-05-16 06:18] LABS: DIFF TOTAL CELLS COUNTED 25 CELL DIFFERENTIAL; VERIFY COUNTS? YES
[2017-05-16 06:20] LABS: ANISOCYTOSIS 1+
[2017-05-16] MEDS: METRONIDAZOLE PMX 500MG/100ML 100 ML IV SCH ×3 (07:46→23:59)
[2017-05-16] MEDS: ACYCLOVIR 600 MG in SODIUM CHLORIDE 0.9% 100 ML IV SCH ×3 (07:46→23:59)
[2017-05-16] MEDS: OMEPRAZOLE 20 MG CAPSULE.DR PO SCH ×2 (07:46→17:26)
[2017-05-16] MEDS: CALCIUM CARBONATE 500 MG TAB.CHEW PO SCH ×3 (07:46→20:43)
[2017-05-16] MEDS ORDERED: DIPHENHYDRAMINE 25 MG CAPSULE ONE (11:14)
[2017-05-16] MEDS: ACETAMINOPHEN 325 MG TABLET PO PRN (11:24)
[2017-05-16] MEDS ORDERED: DIPHENHYDRAMINE 25 MG CAPSULE PO ONE (11:30)
[2017-05-16] MEDS: OXYcodone IR 5MG TABLET PO PRN ×2 (12:52→22:33)
[2017-05-16] MEDS: maalox/diphenh/lido/sucralfate 5 ML PO PRN (17:27)
[2017-05-16] MEDS: TBO-FILGRASTIM 300 MCG/0.5 ML SQ SCH (18:25)
[2017-05-16] MEDS ORDERED: LABETALOL 5MG/ML, 20ML IVPush PRN (19:00)
[2017-05-16] MEDS ORDERED: DOCUSATE 100 MG CAPSULE PO PRN (19:00)
[2017-05-16] MEDS ORDERED: BISACODYL 10 MG SUPP PR PRN (19:00)
[2017-05-16] MEDS: DAPTOMYCIN 240 MG in SODIUM CHLORIDE 0.9% 100 ML IV SCH (20:43)
[2017-05-16] MEDS: MIRTAZAPINE 15 MG TAB.RAPDIS PO SCH (20:44)
[2017-05-16] MEDS: ONDANSETRON 2MG/ML, 2ML IVPush PRN (20:54)
[2017-05-17] MEDS: MICAFUNGIN 100 MG in SODIUM CHLORIDE 0.9% 100 ML IV SCH (00:57)
[2017-05-17] MEDS: MEROPENEM 1 GM in SODIUM CHLORIDE 0.9% 100 ML IV SCH ×3 (00:58→17:27)
[2017-05-17 01:18] VITALS: BP 103/65
[2017-05-17] MEDS: VANCOMYCIN 50 MG/ML ORAL SUSP PO SCH ×4 (03:19→21:04)
[2017-05-17] MEDS: HYDROmorphone 2 MG/ML, 1ML IVPush PRN ×7 (03:19→23:57)
[2017-05-17] MEDS: SODIUM CHLORIDE 0.9% 1,000 ML IV SCH ×3 (05:57→21:12)
[2017-05-17] MEDS: ONDANSETRON 2MG/ML, 2ML IVPush PRN ×3 (05:57→20:58)
[2017-05-17 06:11] LABS: BLOOD UREA NITROGEN 5 mg/dL (7-18)
[2017-05-17 06:15] LABS: ASPARTATE AMINO TRANSFERASE 7 U/L (15-37)
[2017-05-17 06:22] LABS: DIFF TOTAL CELLS COUNTED 50 CELL DIFFERENTIAL
[2017-05-17 06:30] LABS: ANISOCYTOSIS 1+; VERIFY COUNTS? YES
[2017-05-17 08:02] VITALS: BP 114/76
[2017-05-17] MEDS: METRONIDAZOLE PMX 500MG/100ML 100 ML IV SCH ×3 (08:07→23:36)
[2017-05-17] MEDS: ACYCLOVIR 600 MG in SODIUM CHLORIDE 0.9% 100 ML IV SCH ×3 (08:08→23:36)
[2017-05-17] MEDS: OMEPRAZOLE 20 MG CAPSULE.DR PO SCH ×2 (08:08→17:27)
[2017-05-17] MEDS: CALCIUM CARBONATE 500 MG TAB.CHEW PO SCH ×3 (08:08→21:00)
[2017-05-17] MEDS: maalox/diphenh/lido/sucralfate 5 ML PO PRN (09:24)
[2017-05-17 14:12] VITALS: BP 118/84
[2017-05-17] MEDS: TBO-FILGRASTIM 300 MCG/0.5 ML SQ SCH (17:41)
[2017-05-17 18:53] VITALS: BP 104/71
[2017-05-17] MEDS: MIRTAZAPINE 15 MG TAB.RAPDIS PO SCH (21:04)
[2017-05-17] MEDS: DAPTOMYCIN 240 MG in SODIUM CHLORIDE 0.9% 100 ML IV SCH (21:04)
[2017-05-18] MEDS: MICAFUNGIN 100 MG in SODIUM CHLORIDE 0.9% 100 ML IV SCH (00:41)
[2017-05-18] MEDS: MEROPENEM 1 GM in SODIUM CHLORIDE 0.9% 100 ML IV SCH ×3 (00:41→17:36)
[2017-05-18 01:10] VITALS: BP 110/68
[2017-05-18] MEDS: DIPHENHYDRAMINE 50 MG/ML, 1ML IVPush PRN (01:15)
[2017-05-18] MEDS: ONDANSETRON 2MG/ML, 2ML IVPush PRN ×2 (02:57→15:49)
[2017-05-18] MEDS: HYDROmorphone 2 MG/ML, 1ML IVPush PRN ×7 (02:57→23:32)
[2017-05-18] MEDS: VANCOMYCIN 50 MG/ML ORAL SUSP PO SCH ×4 (02:57→21:10)
[2017-05-18] MEDS: OXYcodone IR 5MG TABLET PO PRN (05:14)
[2017-05-18] MEDS: maalox/diphenh/lido/sucralfate 5 ML PO PRN (05:14)
[2017-05-18 05:54] LABS: ASPARTATE AMINO TRANSFERASE 10 U/L (15-37); BLOOD UREA NITROGEN 3 mg/dL (7-18)
[2017-05-18 06:32] LABS: DIFF TOTAL CELLS COUNTED 100 CELL DIFF
[2017-05-18 07:29] LABS: ANISOCYTOSIS 1+; VERIFY COUNTS? YES
[2017-05-18 08:05] VITALS: BP 118/79
[2017-05-18] MEDS: OMEPRAZOLE 20 MG CAPSULE.DR PO SCH ×2 (09:05→17:36)
[2017-05-18] MEDS: ACYCLOVIR 600 MG in SODIUM CHLORIDE 0.9% 100 ML IV SCH ×3 (09:05→21:20)
[2017-05-18] MEDS: CALCIUM CARBONATE 500 MG TAB.CHEW PO SCH ×3 (09:06→21:00)
[2017-05-18] MEDS: METRONIDAZOLE PMX 500MG/100ML 100 ML IV SCH ×2 (09:13→17:35)
[2017-05-18] MEDS ORDERED: MAGNESIUM SULFATE PMX 2GM/50ML 50 ML IV ONE ×2 (12:30→16:00)
[2017-05-18 12:37] VITALS: BP 110/76
[2017-05-18] MEDS: NEUTRA PHOS K 250 MG TABLET PO SCH ×2 (12:44→21:09)
[2017-05-18] MEDS: POTASSIUM CHLORIDE 20 MEQ PACKET PO SCH (12:54)
[2017-05-18] MEDS: SODIUM CHLORIDE 0.9% 1,000 ML IV SCH (15:06)
[2017-05-18] MEDS ORDERED: POTASSIUM PHOSPHATE 44 MEQ in SODIUM CHLORIDE 0.9% 500 ML IV ONE (16:00)
[2017-05-18] MEDS: TBO-FILGRASTIM 300 MCG/0.5 ML SQ SCH (17:36)
[2017-05-18 19:25] VITALS: BP 116/77
[2017-05-18] MEDS: DAPTOMYCIN 240 MG in SODIUM CHLORIDE 0.9% 100 ML IV SCH (21:09)
[2017-05-18] MEDS: MIRTAZAPINE 15 MG TAB.RAPDIS PO SCH (21:09)
[2017-05-19] MEDS: MICAFUNGIN 100 MG in SODIUM CHLORIDE 0.9% 100 ML IV SCH (00:52)
[2017-05-19] MEDS: MEROPENEM 1 GM in SODIUM CHLORIDE 0.9% 100 ML IV SCH ×3 (01:00→16:36)
[2017-05-19 02:12] VITALS: BP 103/74
[2017-05-19] MEDS: METRONIDAZOLE PMX 500MG/100ML 100 ML IV SCH ×3 (02:33→16:36)
[2017-05-19] MEDS: VANCOMYCIN 50 MG/ML ORAL SUSP PO SCH ×4 (02:34→21:42)
[2017-05-19] MEDS: HYDROmorphone 2 MG/ML, 1ML IVPush PRN ×6 (02:34→18:26)
[2017-05-19 03:15] LABS: ASPARTATE AMINO TRANSFERASE 9 U/L (15-37); BLOOD UREA NITROGEN 4 mg/dL (7-18)
[2017-05-19 03:27] LABS: DIFF TOTAL CELLS COUNTED 100 CELL DIFF
[2017-05-19 03:34] LABS: ANISOCYTOSIS 1+; VERIFY COUNTS? YES
[2017-05-19] MEDS: ACYCLOVIR 600 MG in SODIUM CHLORIDE 0.9% 100 ML IV SCH ×3 (05:55→23:00)
[2017-05-19 07:55] VITALS: BP 102/71
[2017-05-19] MEDS: SODIUM CHLORIDE 0.9% 1,000 ML IV SCH ×2 (08:24→21:42)
[2017-05-19] MEDS: OMEPRAZOLE 20 MG CAPSULE.DR PO SCH ×2 (08:26→16:36)
[2017-05-19] MEDS: CALCIUM CARBONATE 500 MG TAB.CHEW PO SCH ×3 (09:00→21:00)
[2017-05-19] MEDS: ONDANSETRON 2MG/ML, 2ML IVPush PRN ×3 (09:32→21:42)
[2017-05-19] MEDS: NEUTRA PHOS K 250 MG TABLET PO SCH ×3 (09:33→21:43)
[2017-05-19] MEDS: POTASSIUM CHLORIDE 20 MEQ PACKET PO SCH ×2 (09:33→21:43)
[2017-05-19] MEDS ORDERED: CATHFLO-ALTEPLASE 2 MG/2 ML CATHFLUSH ONE ×3 (14:10→14:30)
[2017-05-19 15:20] VITALS: BP 108/74
[2017-05-19] MEDS: TBO-FILGRASTIM 300 MCG/0.5 ML SQ SCH (18:26)
[2017-05-19] MEDS: DIPHENHYDRAMINE 50 MG/ML, 1ML IVPush PRN (18:29)
[2017-05-19 20:42] VITALS: BP 112/80
[2017-05-19] MEDS: MIRTAZAPINE 15 MG TAB.RAPDIS PO SCH (21:42)
[2017-05-19] MEDS: OXYcodone IR 5MG TABLET PO PRN (21:43)
[2017-05-19] MEDS: DAPTOMYCIN 240 MG in SODIUM CHLORIDE 0.9% 100 ML IV SCH (23:00)
[2017-05-20] MEDS: DIPHENHYDRAMINE 50 MG/ML, 1ML IVPush PRN ×3 (01:03→16:45)
[2017-05-20] MEDS: MEROPENEM 1 GM in SODIUM CHLORIDE 0.9% 100 ML IV SCH ×2 (01:03→08:35)
[2017-05-20] MEDS: HYDROmorphone 2 MG/ML, 1ML IVPush PRN ×5 (01:03→22:47)
[2017-05-20] MEDS: METRONIDAZOLE PMX 500MG/100ML 100 ML IV SCH ×2 (01:03→10:15)
[2017-05-20] MEDS: MICAFUNGIN 100 MG in SODIUM CHLORIDE 0.9% 100 ML IV SCH (01:03)
[2017-05-20 02:26] VITALS: BP 107/73
[2017-05-20] MEDS: OXYcodone IR 5MG TABLET PO PRN ×2 (04:13→18:17)
[2017-05-20] MEDS: VANCOMYCIN 50 MG/ML ORAL SUSP PO SCH ×4 (04:13→21:44)
[2017-05-20 05:01] LABS: ASPARTATE AMINO TRANSFERASE 10 U/L (15-37); BLOOD UREA NITROGEN 6 mg/dL (7-18)
[2017-05-20 05:36] LABS: DIFF TOTAL CELLS COUNTED 100 CELL DIFF
[2017-05-20 05:45] LABS: VERIFY COUNTS? YES
[2017-05-20 05:47] LABS: ANISOCYTOSIS 1+
[2017-05-20 07:02] VITALS: BP 107/74
[2017-05-20] MEDS: ACYCLOVIR 600 MG in SODIUM CHLORIDE 0.9% 100 ML IV SCH ×3 (07:09→22:47)
[2017-05-20] MEDS ORDERED: MAGNESIUM SULFATE PMX 2GM/50ML 50 ML IV ONE (08:30)
[2017-05-20] MEDS: OMEPRAZOLE 20 MG CAPSULE.DR PO SCH ×2 (08:34→16:27)
[2017-05-20] MEDS: POTASSIUM CHLORIDE 20 MEQ PACKET PO SCH ×2 (08:35→21:44)
[2017-05-20] MEDS: CALCIUM CARBONATE 500 MG TAB.CHEW PO SCH ×3 (08:35→21:44)
[2017-05-20] MEDS: NEUTRA PHOS K 250 MG TABLET PO SCH ×3 (08:35→21:44)
[2017-05-20 13:10] VITALS: BP 110/74
[2017-05-20] MEDS: SODIUM CHLORIDE 0.9% 1,000 ML IV SCH (14:18)
[2017-05-20 14:23] VITALS: BP 115/75
[2017-05-20] MEDS: TBO-FILGRASTIM 300 MCG/0.5 ML SQ SCH (18:18)
[2017-05-20] MEDS: ONDANSETRON 2MG/ML, 2ML IVPush PRN (18:22)
[2017-05-20 20:04] VITALS: BP 93/59
[2017-05-20] MEDS: MIRTAZAPINE 15 MG TAB.RAPDIS PO SCH (21:44)
[2017-05-20 22:47] VITALS: BP 98/65
[2017-05-21] MEDS: DIPHENHYDRAMINE 50 MG/ML, 1ML IVPush PRN ×5 (02:47→23:14)
[2017-05-21] MEDS: OXYcodone IR 5MG TABLET PO PRN ×4 (02:47→16:20)
[2017-05-21] MEDS: VANCOMYCIN 50 MG/ML ORAL SUSP PO SCH ×4 (02:47→20:47)
[2017-05-21] MEDS: SODIUM CHLORIDE 0.9% 1,000 ML IV SCH ×2 (02:48→14:05)
[2017-05-21 02:51] VITALS: BP 104/70
[2017-05-21 03:30] LABS: ASPARTATE AMINO TRANSFERASE 12 U/L (15-37); BLOOD UREA NITROGEN 9 mg/dL (7-18)
[2017-05-21 03:56] LABS: DIFF TOTAL CELLS COUNTED 100 CELL DIFF
[2017-05-21 04:14] LABS: ANISOCYTOSIS 1+; OVALOCYTES 1+; POLYCHROMASIA 1+; VERIFY COUNTS? YES
[2017-05-21] MEDS: HYDROmorphone 2 MG/ML, 1ML IVPush PRN ×5 (05:33→20:48)
[2017-05-21 07:00] VITALS: BP 93/61
[2017-05-21] MEDS: OMEPRAZOLE 20 MG CAPSULE.DR PO SCH ×2 (07:32→16:20)
[2017-05-21] MEDS: ACYCLOVIR 600 MG in SODIUM CHLORIDE 0.9% 100 ML IV SCH (07:32)
[2017-05-21] MEDS: NEUTRA PHOS K 250 MG TABLET PO SCH ×3 (09:17→20:47)
[2017-05-21] MEDS: POTASSIUM CHLORIDE 20 MEQ PACKET PO SCH ×2 (09:17→20:48)
[2017-05-21] MEDS: CALCIUM CARBONATE 500 MG TAB.CHEW PO SCH ×3 (09:18→20:48)
[2017-05-21 12:16] VITALS: BP 98/61
[2017-05-21] MEDS: TBO-FILGRASTIM 300 MCG/0.5 ML SQ SCH (17:22)
[2017-05-21 20:19] VITALS: BP 102/63
[2017-05-21] MEDS: MIRTAZAPINE 15 MG TAB.RAPDIS PO SCH (20:47)
[2017-05-22] MEDS: HYDROmorphone 2 MG/ML, 1ML IVPush PRN ×5 (01:21→22:37)
[2017-05-22] MEDS: SODIUM CHLORIDE 0.9% 1,000 ML IV SCH ×2 (01:21→13:20)
[2017-05-22 01:29] VITALS: BP 102/70
[2017-05-22] MEDS: VANCOMYCIN 50 MG/ML ORAL SUSP PO SCH ×4 (03:31→20:35)
[2017-05-22] MEDS: OXYcodone IR 5MG TABLET PO PRN ×4 (03:32→18:31)
[2017-05-22] MEDS: DIPHENHYDRAMINE 50 MG/ML, 1ML IVPush PRN ×4 (03:32→20:35)
[2017-05-22 04:14] LABS: BLOOD UREA NITROGEN 8 mg/dL (7-18)
[2017-05-22 04:20] LABS: ASPARTATE AMINO TRANSFERASE 11 U/L (15-37)
[2017-05-22 04:53] LABS: DIFF TOTAL CELLS COUNTED 100 CELL DIFF
[2017-05-22 04:58] LABS: ANISOCYTOSIS 1+; OVALOCYTES 1+; POLYCHROMASIA 1+; VERIFY COUNTS? YES
[2017-05-22 06:50] VITALS: BP 95/64
[2017-05-22] MEDS: NEUTRA PHOS K 250 MG TABLET PO SCH ×3 (08:24→20:35)
[2017-05-22] MEDS: POTASSIUM CHLORIDE 20 MEQ PACKET PO SCH ×2 (08:24→20:36)
[2017-05-22] MEDS: OMEPRAZOLE 20 MG CAPSULE.DR PO SCH ×2 (08:24→17:11)
[2017-05-22] MEDS: CALCIUM CARBONATE 500 MG TAB.CHEW PO SCH ×3 (08:28→20:36)
[2017-05-22] MEDS ORDERED: POTASSIUM PHOSPHATE 44 MEQ in SODIUM CHLORIDE 0.9% 500 ML IV ONE (08:30)
[2017-05-22] MEDS ORDERED: MAGNESIUM SULFATE PMX 2GM/50ML 50 ML IV ONE (08:30)
[2017-05-22] MEDS: ONDANSETRON 2MG/ML, 2ML IVPush PRN (10:21)
[2017-05-22 12:11] VITALS: BP 100/61
[2017-05-22] MEDS: TBO-FILGRASTIM 300 MCG/0.5 ML SQ SCH (18:27)
[2017-05-22 20:23] VITALS: BP 101/60
[2017-05-22] MEDS: MIRTAZAPINE 15 MG TAB.RAPDIS PO SCH (20:35)
[2017-05-23] MEDS: HYDROmorphone 2 MG/ML, 1ML IVPush PRN ×4 (03:15→23:39)
[2017-05-23] MEDS: VANCOMYCIN 50 MG/ML ORAL SUSP PO SCH ×4 (03:15→20:58)
[2017-05-23 03:18] VITALS: BP 102/66
[2017-05-23] MEDS: DIPHENHYDRAMINE 50 MG/ML, 1ML IVPush PRN ×4 (03:32→20:58)
[2017-05-23 03:56] LABS: ASPARTATE AMINO TRANSFERASE 12 U/L (15-37); BLOOD UREA NITROGEN 10 mg/dL (7-18)
[2017-05-23 04:18] LABS: DIFF TOTAL CELLS COUNTED 100 CELL DIFF
[2017-05-23 04:19] LABS: VERIFY COUNTS? YES
[2017-05-23 04:20] LABS: ANISOCYTOSIS 1+; POLYCHROMASIA 1+
[2017-05-23 07:35] VITALS: BP 98/63
[2017-05-23] MEDS: NEUTRA PHOS K 250 MG TABLET PO SCH ×3 (07:42→20:58)
[2017-05-23] MEDS: CALCIUM CARBONATE 500 MG TAB.CHEW PO SCH ×3 (07:42→20:58)
[2017-05-23] MEDS: SODIUM CHLORIDE 0.9% 1,000 ML IV SCH ×2 (07:42→15:55)
[2017-05-23] MEDS: POTASSIUM CHLORIDE 20 MEQ PACKET PO SCH ×2 (07:42→20:57)
[2017-05-23] MEDS: OMEPRAZOLE 20 MG CAPSULE.DR PO SCH ×2 (07:42→15:55)
[2017-05-23] MEDS: ONDANSETRON 2MG/ML, 2ML IVPush PRN (07:50)
[2017-05-23] MEDS: OXYcodone IR 5MG TABLET PO PRN ×4 (09:10→21:40)
[2017-05-23 13:12] VITALS: BP 103/64
[2017-05-23] MEDS: TBO-FILGRASTIM 300 MCG/0.5 ML SQ SCH (17:24)
[2017-05-23 19:47] VITALS: BP 102/60
[2017-05-23] MEDS: MIRTAZAPINE 15 MG TAB.RAPDIS PO SCH (20:57)
[2017-05-23] MEDS ORDERED: maalox/diphenh/lido/sucralfate 5 ML PO PRN (21:36)
[2017-05-23] MEDS ORDERED: ONDANSETRON 2MG/ML, 2ML IVPush PRN (22:00)
[2017-05-23] MEDS ORDERED: ACETAMINOPHEN 325 MG TABLET PO PRN (22:00)
[2017-05-23] MEDS ORDERED: DOCUSATE 100 MG CAPSULE PO PRN (22:00)
[2017-05-23] MEDS ORDERED: BISACODYL 10 MG SUPP PR PRN (22:00)
[2017-05-23] MEDS ORDERED: POLYETHYLENE GLYCOL 17 GM PACKET PO PRN (22:00)
[2017-05-24 00:59] VITALS: BP 91/55
[2017-05-24] MEDS: DIPHENHYDRAMINE 50 MG/ML, 1ML IVPush PRN ×5 (01:24→22:02)
[2017-05-24] MEDS: OXYcodone IR 5MG TABLET PO PRN ×5 (01:24→22:32)
[2017-05-24] MEDS: VANCOMYCIN 50 MG/ML ORAL SUSP PO SCH ×3 (03:32→22:05)
[2017-05-24] MEDS: SODIUM CHLORIDE 0.9% 1,000 ML IV SCH ×3 (03:32→22:02)
[2017-05-24 03:55] LABS: ASPARTATE AMINO TRANSFERASE 13 U/L (15-37); BLOOD UREA NITROGEN 11 mg/dL (7-18)
[2017-05-24 04:23] LABS: DIFF TOTAL CELLS COUNTED 100 CELL DIFF
[2017-05-24 04:28] LABS: ANISOCYTOSIS 1+; POLYCHROMASIA 1+; VERIFY COUNTS? YES
[2017-05-24] MEDS: HYDROmorphone 2 MG/ML, 1ML IVPush PRN ×2 (05:38→13:42)
[2017-05-24 07:34] VITALS: BP 94/58
[2017-05-24] MEDS ORDERED: METHOTREXATE/PF 2ML 12 MG in SODIUM CHLORIDE 0.9% 4.52 ML IT ONE (08:30)
[2017-05-24] MEDS: POTASSIUM CHLORIDE 20 MEQ PACKET PO SCH ×2 (08:54→22:01)
[2017-05-24] MEDS: NEUTRA PHOS K 250 MG TABLET PO SCH ×3 (08:54→22:01)
[2017-05-24] MEDS: OMEPRAZOLE 20 MG CAPSULE.DR PO SCH ×2 (08:54→17:52)
[2017-05-24] MEDS: CALCIUM CARBONATE 500 MG TAB.CHEW PO SCH ×3 (08:54→21:00)
[2017-05-24] MEDS ORDERED: MIRT15TA6 PO (12:49)
[2017-05-24] MEDS ORDERED: OMEP-110 PO (12:49)
[2017-05-24] MEDS ORDERED: ALPR0.254 PO (13:54)
[2017-05-24] MEDS ORDERED: VANC125C2 PO (13:59)
[2017-05-24] MEDS ORDERED: PHOS250T3 PO (14:01)
[2017-05-24] MEDS ORDERED: OXYC5TAB3 PO (14:01)
[2017-05-24] MEDS ORDERED: MAGN400T26 PO (14:01)
[2017-05-24 14:26] VITALS: BP 90/58
[2017-05-24] MEDS: TBO-FILGRASTIM 300 MCG/0.5 ML SQ SCH (19:00)
[2017-05-24 19:04] VITALS: BP 93/62
[2017-05-24] MEDS: MIRTAZAPINE 15 MG TAB.RAPDIS PO SCH (21:59)
[2017-05-25] MEDS: OXYcodone IR 5MG TABLET PO PRN ×4 (02:40→14:11)
[2017-05-25] MEDS: DIPHENHYDRAMINE 50 MG/ML, 1ML IVPush PRN (02:56)
[2017-05-25 03:11] LABS: ASPARTATE AMINO TRANSFERASE 13 U/L (15-37); BLOOD UREA NITROGEN 9 mg/dL (7-18)
[2017-05-25 03:25] VITALS: BP 90/56
[2017-05-25 03:31] LABS: DIFF TOTAL CELLS COUNTED 100 CELL DIFF
[2017-05-25 03:33] LABS: VERIFY COUNTS? YES
[2017-05-25 03:34] LABS: ANISOCYTOSIS 1+; OVALOCYTES 1+; POLYCHROMASIA 1+
[2017-05-25 08:10] VITALS: BP 96/64
[2017-05-25] MEDS: POTASSIUM CHLORIDE 20 MEQ PACKET PO SCH (10:18)
[2017-05-25] MEDS: OMEPRAZOLE 20 MG CAPSULE.DR PO SCH (10:18)
[2017-05-25] MEDS: NEUTRA PHOS K 250 MG TABLET PO SCH (10:18)
[2017-05-25] MEDS: VANCOMYCIN 50 MG/ML ORAL SUSP PO SCH (10:18)
[2017-05-25] MEDS: SODIUM CHLORIDE 0.9% 1,000 ML IV SCH (10:19)
[2017-05-25] MEDS: CALCIUM CARBONATE 500 MG TAB.CHEW PO SCH (10:19)
[2017-05-25 13:29] VITALS: BP 96/62
== END 2017-05-25 17:00 | disposition home or self-care (01) | DRG 834 ==
LOC: ED 20:12 → EDIP 20:54 → CCU 22:26 → 3NW 04-25 11:11
PROVIDERS: ADMIT Internal Medicine; ATTEND Internal Medicine
PROC: 30233R1 Transfusion of Nonautologous Platelets into Peripheral Vein, Percutaneous Approach (ICD-10-PCS; 2017-04-21)
PROC: 02HV33Z Insertion of Infusion Device into Superior Vena Cava, Percutaneous Approach (ICD-10-PCS; principal; 2017-04-22)
PROC: B548ZZA Ultrasonography of Superior Vena Cava, Guidance (ICD-10-PCS; 2017-04-22)
PROC: B5181ZA Fluoroscopy of Superior Vena Cava using Low Osmolar Contrast, Guidance (ICD-10-PCS; 2017-04-22)
PROC: 07DR3ZX Extraction of Iliac Bone Marrow, Percutaneous Approach, Diagnostic (ICD-10-PCS; 2017-04-23)
PROC: 30233N1 Transfusion of Nonautologous Red Blood Cells into Peripheral Vein, Percutaneous Approach (ICD-10-PCS; 2017-04-25)
PROC: 07DR3ZX Extraction of Iliac Bone Marrow, Percutaneous Approach, Diagnostic (ICD-10-PCS; 2017-05-07)
PROC: 3E0R305 Introduction of Other Antineoplastic into Spinal Canal, Percutaneous Approach (ICD-10-PCS; 2017-05-24)
PROC: 009U3ZX Drainage of Spinal Canal, Percutaneous Approach, Diagnostic (ICD-10-PCS; 2017-05-24)
PROC: B01B1ZZ Fluoroscopy of Spinal Cord using Low Osmolar Contrast (ICD-10-PCS; 2017-05-24)
DX: C91.02 Acute lymphoblastic leukemia, in relapse (principal); E88.3 Tumor lysis syndrome; D68.9 Coagulation defect, unspecified; D69.3 Immune thrombocytopenic purpura; A04.7 Enterocolitis due to Clostridium difficile; A07.1 Giardiasis [lambliasis]; D61.818 Other pancytopenia; E44.0 Moderate protein-calorie malnutrition; M87.9 Osteonecrosis, unspecified; E87.6 Hypokalemia; N30.91 Cystitis, unspecified with hematuria; E86.0 Dehydration; B00.9 Herpesviral infection, unspecified; D63.0 Anemia in neoplastic disease; E83.39 Other disorders of phosphorus metabolism; E83.42 Hypomagnesemia; F41.0 Panic disorder [episodic paroxysmal anxiety]; K04.7 Periapical abscess without sinus; K37 Unspecified appendicitis; K20.9 Esophagitis, unspecified; L53.9 Erythematous condition, unspecified; M27.2 Inflammatory conditions of jaws; R50.81 Fever presenting with conditions classified elsewhere; T78.3XXA Angioneurotic edema, initial encounter; Z88.1 Allergy status to other antibiotic agents; Z91.19 Patient's noncompliance with other medical treatment and regimen; Z68.23 Body mass index [BMI] 23.0-23.9, adult
CPT/HCPCS: 36415; 36430; 36569; 62270; 70100; 70487; 71010; 71275; 74177; 76937; 77001; 77012; 80048; 80053; 81001; 81003; 82272; 82550; 83605; 83615; 83735; 84100; 84132; 84145; 84439; 84443; 84550; 84702; 85025; 85027; 85097; 85384; 85610; 85651; 85730; 86140; 86361; 86644; 86645; 86694; 86695; 86696; 86704; 86706; 86850; 86900; 86923; 87040; 87046; 87081; 87086; 87324; 87328; 87329; 87340; 87493; 87498; 87529; 88108; 88237; 88264; 88280; 88305; 88311; 88313; 89051; 89055; 93005; 93306; 96361; 96372; 96374; 96375; 99156; 99157; G0364; J0133; J0696; J0878; J1100; J1170; J1442; J2185; J2248; J2250; J2405; J2543; J2550; J2997; J3010; J3370; J3480; J3490; J9100; J9211; J9250; Q9967; C1751; J1200; J1447; J1720; J2060; J2310; J3475; J7030; J7040; J7050; J9185; P9037; P9040; Q0163

== ENCOUNTER 2017-06-02 09:44 | Day surgery (SDC) | payer MEDICAID ==
[~2017-06-02 09:44] MED LIST changes: +MIRT15TA6 PO; +OMEP-110 PO; +OXYC5TAB3 PO; +PHOS250T3 PO; +VANC125C2 PO
[2017-06-02] MEDS ORDERED: oxycontin PO (10:20)
[2017-06-02] MEDS ORDERED: ALPR0.254 PO (10:21)
[2017-06-02 10:22] VITALS: BP 111/78
[2017-06-02] MEDS ORDERED: FLUMAZENIL 0.1 MG/1 ML, 5ML ONE (10:53)
[2017-06-02] MEDS ORDERED: NALOXONE 1 MG/ML, 2ML ONE (10:53)
[2017-06-02] MEDS ORDERED: FENTANYL PF 100 MCG/2ML ONE (10:53)
[2017-06-02] MEDS ORDERED: MIDAZOLAM 1 MG/ML, 5ML ONE (10:53)
[2017-06-02 11:35] LABS: DIFF TOTAL CELLS COUNTED 100 CELL DIFF
[2017-06-02 11:39] LABS: VERIFY COUNTS? YES
[2017-06-02 11:40] LABS: ANISOCYTOSIS 2+; POLYCHROMASIA 1+
[2017-06-02 11:41] LABS: OVALOCYTES 1+
[2017-06-02] MEDS ORDERED: OXYcodone IR 5MG TABLET PO PRN (13:00)
== END 2017-06-02 14:00 ==
LOC: OUT 09:44
PROVIDERS: ATTEND Internal Medicine
DX: D72.819 Decreased white blood cell count, unspecified (principal); D70.9 Neutropenia, unspecified; Z88.1 Allergy status to other antibiotic agents
CPT/HCPCS: 36415; 38221; 77012; 85025; 85097; 88237; 88264; 88280; 88305; 88311; G0364; J2250; J3010; 88313; J2310